=== PATIENT | female | born 1995 | race Caucasian/White ===

== ENCOUNTER 2018-07-10 19:57 | Emergency (ER) | payer MEDICAID, OTHER ==
[2018-07-10] MEDS ORDERED: TETANUS & DIPHTHERIA TOX,ADULT 0.5 ML VIAL ONE (20:38)
[2018-07-10] MEDS ORDERED: TETRACAINE HCL 0.5% 2ML OPTH ONE (20:38)
[2018-07-10] MEDS ORDERED: FLUORESCEIN SODIUM 0.6 MG/WRAP ONE (20:38)
--- NOTE | 2018-07-10 20:41 | EDPHYS ---
Physician Documentation [facility] Name: Jose Hedrick Age: 22 yrs Sex: Female : 1995 Arrival Date: 07/10/2018 Time: 20:01 Bed 13 Private MD: ED Physician Anish Yarbrough HPI: 07/10 20:24 This 22 yrs old Female presents to ER via Unassigned with complaints of snw Scratched Eye. 20:24 Onset: The symptoms/episode began/occurred suddenly, 4 hour(s) ago, and became snw persistent. Associated signs and symptoms: Pertinent positives: tearing . The patient has not experienced similar symptoms in the past. It is unknown whether or not the patient has recently seen a physician. 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 - Social history:: Smoking status: Patient/guardian denies using tobacco, never smoked. - Ebola Screening: : No symptoms or risks identified at this time. ROS: 20:23 Constitutional: Negative for fever, chills, and weight loss, ENT: Negative for injury, snw pain, and discharge, Neck: Negative for injury, pain, and swelling, Cardiovascular: Negative for chest pain, palpitations, and edema, Respiratory: Negative for shortness of breath, cough, wheezing, and pleuritic chest pain, Abdomen/GI: Negative for abdominal pain, nausea, vomiting, diarrhea, and constipation, Back: Negative for injury and pain, : Negative for injury, bleeding, discharge, and swelling, MS/Extremity: Negative for injury and deformity, Skin: Negative for injury, rash, and discoloration, Neuro: Negative for headache, weakness, numbness, tingling, and seizure. 20:23 Eyes: Positive for injury or acute deformity, pain, tearing, of the outer aspect of conjuctiva of right eye and inner aspect of conjuctiva of right eye. Exam: 20:22 Constitutional: This is a well developed, well nourished patient who is awake, alert, snw and in no acute distress. Head/Face: Normocephalic, atraumatic. ENT: Nares patent. No nasal discharge, no septal abnormalities noted. Tympanic membranes are normal and external auditory canals are clear. Oropharynx with no redness, swelling, or masses, exudates, or evidence of obstruction, uvula midline. Mucous membranes moist. Neck: Trachea midline, no thyromegaly or masses palpated, and no cervical lymphadenopathy. Supple, full range of motion without nuchal rigidity, or vertebral point tenderness. No Meningismus. Chest/axilla: Normal chest wall appearance and motion. Nontender with no deformity. No lesions are appreciated. Cardiovascular: Regular rate and rhythm with a normal S1 and S2. No gallops, murmurs, or rubs. Normal PMI, no JVD. No pulse deficits. Respiratory: Lungs have equal breath sounds bilaterally, clear to auscultation and percussion. No rales, rhonchi or wheezes noted. No increased work of breathing, no retractions or nasal flaring. Abdomen/GI: Soft, non-tender, with normal bowel sounds. No distension or tympany. No guarding or rebound. No evidence of tenderness throughout. Back: No spinal tenderness. No costovertebral tenderness. Full range of motion. Skin: Warm, dry with normal turgor. Normal color with no rashes, no lesions, and no evidence of cellulitis. MS/ Extremity: Pulses equal, no cyanosis. Neurovascular intact. Full, normal range of motion. Neuro: Awake and alert, GCS 15, oriented to person, place, time, and situation. Cranial nerves II-XII grossly intact. Motor strength 5/5 in all extremities. Sensory grossly intact. Cerebellar exam normal. Normal gait. 20:22 Eyes: Pupils: no acute changes, Extraocular movements: no acute changes, Conjunctiva: injected, tearing noted, in right eye, Corneas: abrasion, that is small, approximately 1 mm(s), at 7 o'clock. Vital Signs: 20:10 BP 126 / 81; Pulse 71; Resp 17 S; Temp 98.3(O); Pulse Ox 98% on R/A; Weight 77.56 kg; cc3 Height 5 ft. 2 in. (157.48 cm); Pain 8/10; 20:10 Body Mass Index 31.28 (77.56 kg, 157.48 cm) cc3 Procedures: 20:37 Eye Exam: + corneal abrasion of right eye distal and medial to pupil. snw MDM: 20:20 Patient medically screened. [facility] 20:41 Data reviewed: vital signs, nurses notes. Data interpreted: Pulse oximetry: on room air snw is 99 %. Interpretation: normal. Counseling: I had a detailed discussion with the patient and/or guardian regarding: the historical points, exam findings, and any diagnostic results supporting the discharge/admit diagnosis, the need for outpatient follow up, to return to the emergency department if symptoms worsen or persist or if there are any questions or concerns that arise at home. Special discussion: Based on the history and exam findings, there is no indication for further emergent testing or inpatient evaluation. I discussed with the patient/guardian the need to see the opthamologist for further evaluation of the symptoms. 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 Exp: cc3 08/22/2020. Lot #: [id number]. } Route: IM; Site: right deltoid; 20:55 Follow up: Response: No adverse reaction cc3 20:40 Drug: ERYTHromycin Ointment 1 application Route: Ophthalmic; Site: right eye; cc3 20:55 Follow up: Response: No adverse reaction cc3 20:53 Drug: Clark 5 mg-325 mg 1 tabs Route: PO; cc3 20:55 Follow up: Response: No adverse reaction; Pain is decreased cc3 Disposition: 07/11 06:44 Co-signature as Attending Physician, Anish Yarbrough MD I agree with the assessment and [facility] plan of care. Disposition: 07/10/18 20:40 Discharged to Home. Impression: Injury of conjunctiva and corneal abrasion without foreign body. - Condition is Stable. - Discharge Instructions: Corneal Abrasion, VIS, Tetanus, Diphtheria (Td) - CDC. - Prescriptions for Vigamox 0.5 % Ophthalmic Drops - instill 1 drop by OPHTHALMIC route every 8 hours for 7 days; 5 milliliter. Diclofenac Sodium 75 mg Oral Tablet Sustained Release - take 1 tablet by ORAL route 2 times per day; 30 tablet. - Medication Reconciliation Form, Thank You Letter, Antibiotic Education, Prescription Opioid Use form. - Follow up: Tameka Roberto MD; When: 1 - 2 days; Reason: Recheck today's complaints, Continuance of care. Signatures: Anish Yarbrough MD MD cha Therrien, Shelly, SPECIFICATION CONSULTANT-C SPECIFICATION CONSULTANT-Csnw Kalyani Joshi cc3 Corrections: (The following items were deleted from the chart) 07/10 20:48 20:22 Eyes: Pupils: no acute changes, Extraocular movements: no acute changes, snw Conjunctiva: injected, tearing noted, in right eye, snw 20:59 20:40 07/10/2018 20:40 Discharged to Home. Impression: Injury of conjunctiva and cc3 corneal abrasion without foreign body. Condition is Stable. Forms are Medication Reconciliation Form, Thank You Letter, Antibiotic Education, Prescription Opioid Use. Follow up: Tameka Roberto; When: 1 - 2 days; Reason: Recheck today's complaints, Continuance of care. snw
[2018-07-10] MEDS ORDERED: ERYTHROMYCIN 3.5GM OPTH OINT ONE (20:47)
[2018-07-10] MEDS ORDERED: HYDROCODONE/APAP 5/325 MG TAB ONE (20:59)
--- NOTE | 2018-07-10 20:59 | ER ---
Nurse's Notes [facility] Name: Jose Hedrick Age: 22 yrs Sex: Female : 1995 Arrival Date: 07/10/2018 Time: 20:01 Bed 13 Private MD: Diagnosis: Injury of conjunctiva and corneal abrasion without foreign body Presentation: 07/10 20:10 Presenting complaint: Patient states: her 10-month old daughter accidentally scratched cc3 her right eye with the infant's fingers since a couple of hours back. Transition of care: patient was not received from another setting of care. Onset of symptoms was July 10, 2018. Risk Assessment: Do you want to hurt yourself or someone else? Patient reports no desire to harm self or others. Initial Sepsis Screen: Does the patient meet any 2 criteria? No. Patient's initial sepsis screen is negative. Does the patient have a suspected source of infection? No. Patient's initial sepsis screen is negative. Care prior to arrival: None. 20:10 Method Of Arrival: Ambulatory cc3 20:10 Acuity: LARISSA 3 cc3 20:10 Onset of symptoms was July 10, 2018. cc3 Triage Assessment: 20:10 General: Appears in no apparent distress. uncomfortable, Behavior is calm, cooperative, cc3 appropriate for age. Pain: Complains of pain in inner aspect of conjuctiva of right eye and outer aspect of conjuctiva of right eye. EENT: Reports scratched right eye. Neuro: Level of Consciousness is awake, alert, obeys commands, Oriented to person, place, time, situation, Appropriate for age. Cardiovascular: Denies chest pain. Respiratory: Airway is patent Respiratory effort is even, unlabored, Respiratory pattern is regular, symmetrical. GI: Abdomen is round non-distended. : No signs and/or symptoms were reported regarding the genitourinary system. Derm: mosquito bites all over her bilateral upper limbs. Musculoskeletal: Circulation, motion, and sensation intact. Range of motion: intact in all extremities. 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 - Social history:: Smoking status: Patient/guardian denies using tobacco, never smoked. - Ebola Screening: : No symptoms or risks identified at this time. Screenin:10 Abuse screen: Denies threats or abuse. Denies injuries from another. Nutritional cc3 screening: No deficits noted. Tuberculosis screening: No symptoms or risk factors identified. Fall Risk Ambulatory Aid- None/Bed Rest/Nurse Assist (0 pts). Gait- Normal/Bed Rest/Wheelchair (0 pts) Mental Status- Oriented to own ability (0 pts). Assessment: 20:10 General: see triage assessment. cc3 20:55 Reassessment: Patient appears in no apparent distress at this time. Patient and/or cc3 family updated on plan of care and expected duration. Pain level reassessed. Patient is alert, oriented x 3, equal unlabored respirations, skin warm/dry/pink. CLOTH INSPECTOR Ruth discharged the patient home with prescription given. No IV cannula in situ. Patient left ER vitally stable and ambulatory. Vital Signs: 20:10 BP 126 / 81; Pulse 71; Resp 17 S; Temp 98.3(O); Pulse Ox 98% on R/A; Weight 77.56 kg; cc3 Height 5 ft. 2 in. (157.48 cm); Pain 8/10; 20:10 Body Mass Index 31.28 (77.56 kg, 157.48 cm) cc3 ED Course: 20:01 Patient arrived in ED. ds1 20:09 Kalyani Joshi is Primary Nurse. cc3 20:10 Patient has correct armband on for positive identification. Bed in low position. Call cc3 light in reach. Side rails up X 1. Pulse ox on. NIBP on. 20:10 Arm band placed on right wrist. cc3 20:20 [facility]C [facility] snw 20:20 Anish Yarbrough MD is Attending Physician. snw 20:39 Tameka Roberto MD is Referral Physician. snw 20:55 No provider procedures requiring assistance completed. Patient did not have IV access cc3 during this emergency room visit. 21:04 Triage completed. 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 Exp: cc3 08/22/2020. Lot #: [id number]. } Route: IM; Site: right deltoid; 20:55 Follow up: Response: No adverse reaction cc3 20:40 Drug: ERYTHromycin Ointment 1 application Route: Ophthalmic; Site: right eye; cc3 20:55 Follow up: Response: No adverse reaction cc3 20:53 Drug: [place] 5 mg-325 mg 1 tabs Route: PO; cc3 20:55 Follow up: Response: No adverse reaction; Pain is decreased cc3 Outcome: 20:40 Discharge ordered by . rory 20:55 Discharged to home ambulatory. cc3 20:55 Condition: stable 20:55 Discharge instructions given to patient, Instructed on discharge instructions, follow up and referral plans. medication usage, Demonstrated understanding of instructions, follow-up care, medications, Prescriptions given X 2. 20:59 Patient left the ED. cc3 Signatures: Ruth Ewing, DENTAL TECHNOLOGY ADVISOR-C DENTAL TECHNOLOGY ADVISOR-Csnw Xohcitl Suárez dsKalyani Casper cc3
== END 2018-07-10 20:59 | disposition home or self-care (01) ==
LOC: ER 19:57
DX: S05.01XA Injury of conjunctiva and corneal abrasion without foreign body, right eye, initial encounter (principal); W50.4XXA Accidental scratch by another person, initial encounter; Y93.9 Activity, unspecified
CPT/HCPCS: 90714; 99283